=== PATIENT | female | born 1960 ===

== ENCOUNTER 2020-01-30 08:47 | Day surgery (SDC) | payer OTHER ==
[~2020-01-30 08:47] MED LIST: 50% Dextrose in Water 50 ML Syringe IVPUSH PRN; Albuterol 0.083% 2.5 MG/3 ML Neb Soln NEB PRN; Atropine 0.1 MG/ML 10 ML Syringe IVPUSH PRN; EPINEPHrine 1:10,000 1 MG/10 ML Syringe IVPUSH PRN; Lactated Ringers 1,000 ML IV SCH; Lidocaine 2% 5 ML SDV ONE; Midazolam 1 MG/ML 2 ML SDV ONE; Naloxone 0.4 MG/ML Syringe IVPUSH PRN; Propofol 200 MG/20 ML SDV ONE; Sodium Chloride 0.9% 10 ML SDV IV PRN; Sodium Chloride 0.9% 10 ML Syringe FLUSH PRN; Sodium Chloride 0.9% 2.5 ML Syringe FLUSH PRN; fentaNYL 100 MCG/2 ML SDV IVPUSH PRN; fentaNYL 100 MCG/2 ML SDV ONE
[2020-01-30] MEDS ORDERED: Propofol 200 MG/20 ML SDV ONE (09:16)
--- NOTE | 2020-01-30 09:33 | PCM.PREANE ---
Preanesthetic Assessment - Anesthesia/Transfusion/Family Hx Anesthesia History: Prior Anesthesia Without Reaction Family History of Anesthesia Reaction: No Transfusion History: No Prior Transfusion(s) Intubation History: Unknown - Review of Systems General: No Symptoms Pulmonary: No Symptoms Cardiovascular: No Symptoms Gastrointestinal: No Symptoms Neurological: No Symptoms Other: Reports: None - Physical Assessment Vital Signs: Last Vital Signs Temp 36.3 C 01/30/20 09:00 Pulse 66 01/30/20 09:00 Resp 16 01/30/20 09:00 BP 143/81 H 01/30/20 09:00 Pulse Ox 97 01/30/20 09:00 Height: 6 ft Weight: 96.615 kg ASA Class: 1 Mental Status: Alert & Oriented x3 Airway Class: Mallampati = 1 Dentition: Reports: Normal Dentition Thyro-Mental Finger Breadths: 3 Mouth Opening Finger Breadths: 3 ROM/Head Extension: Full Lungs: Clear to Auscultation, Normal Respiratory Effort Cardiovascular: Regular Rate, Regular Rhythm - Allergies Allergies/Adverse Reactions: Allergies Allergy/AdvReac Type Severity Reaction Status Date / Time No Known Allergies Allergy Verified 01/24/20 09:17 - Blood Blood Available: No - Anesthesia Plan Pre-Op Medication Ordered: None - Acknowledgements Anesthesia Type Planned: MAC Pt an Appropriate Candidate for the Planned Anesthesia: Yes Alternatives and Risks of Anesthesia Discussed w Pt/Guardian: Yes Pt/Guardian Understands and Agrees with Anesthesia Plan: Yes PreAnesthesia Questionnaire HEENT History: Other HEENT History: wears reading glasses Cardiovascular History: Reports: None Respiratory History: Reports: None Gastrointestinal History: Reports: None Genitourinary History: Reports: None 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 Musculoskeletal History: Reports: None Neurological History: Reports: Vertigo Other Neuro History: hx of motion sickness Psychiatric History: Reports: None Hematologic History: Reports: None Immunologic History: Reports: None Oncologic (Cancer) History: Reports: None Dermatologic History: Reports: Other (See Below) Other Dermatologic History: has occasional outbreaks of shingles - Past Surgical History HEENT Surgical History: Reports: LASIK, Tonsillectomy Female Surgical History: Reports: D&C, Tubal Ligation, Other (See Below) Other Female Surgeries/Procedures: Laparotomy Other Musculoskeletal Surgeries/Procedures:: bone spur removed from foot - SUBSTANCE USE Smoking Status *Q: Former Smoker (quit > 15 years ago) Tobacco Use Within Last Twelve Months: No Recreational Drug Use History: No - HOME MEDS Home Medications: Home Meds Chromium/Herbal Complex No.238 [Green Tea Caplet] 1 tab PO DAILY 11/06/15 [History] Fish Oil/[place]-3 Fatty Acids [Fish Oil 1,000 MG] 1 cap PO DAILY 11/06/15 [History] Multivitamin [Multiple Vitamins] 1 tab PO DAILY 11/06/15 [History] Lifitegrast [Xiidra] 1 drop EYEBOTH BID 01/24/20 [History] - CURRENT (IN HOUSE) MEDS Current Meds: Current Medications Albuterol (Proventil Neb Soln) 2.5 mg NEB ONETIME PRN PRN Reason: Wheezing Atropine Sulfate (Atropine 0.1 Mg/Ml) 0.5 mg IVPUSH ASDIRECTED PRN PRN Reason: Hypo-perfusion Atropine Sulfate (Atropine 0.1 Mg/Ml) 1 mg IVPUSH ASDIRECTED PRN PRN Reason: Hypo-Perfusion Dextrose/Water (Dextrose 50% In Water) 50 ml IVPUSH ASDIRECTED PRN PRN Reason: Hypoglycemia Epinephrine HCl (Epinephrine 1:10,000) 1 mg IVPUSH ASDIRECTED PRN PRN Reason: ACLS Guidelines Fentanyl (Sublimaze) 50 - 100 mcg IVPUSH Q5M PRN PRN Reason: Pain Lactated Ringer's (Ringers, Lactated) 1,000 mls @ 125 mls/hr IV ASDIRECTED EMILIE Last Admin: 01/30/20 09:25 Dose: 125 mls/hr Documented by: Naloxone HCl (Narcan) 0.1 mg IVPUSH ASDIRECTED PRN PRN Reason: Respiratory Depression Sodium Chloride (Normal Saline) 10 ml IV ASDIRECTED PRN PRN Reason: IV Use Sodium Chloride (Saline Flush) 10 ml FLUSH ASDIRECTED PRN PRN Reason: Keep Vein Open Sodium Chloride (Saline Flush) 2.5 ml FLUSH ASDIRECTED PRN PRN Reason: Keep Vein Open Discontinued Medications Fentanyl (Sublimaze) Confirm Administered Dose 100 mcg .ROUTE .STK-MED ONE Stop: 01/30/20 08:31 Lidocaine (Xylocaine-Mpf 2%) Confirm Administered Dose 5 ml .ROUTE .STK-MED ONE Stop: 01/30/20 08:31 Midazolam HCl (Versed 1 Mg/Ml) Confirm Administered Dose 2 mg .ROUTE .STK-MED ONE Stop: 01/30/20 08:31 Propofol (Diprivan 20 Ml) Confirm Administered Dose 400 mg .ROUTE .STK-MED ONE Stop: 01/30/20 08:31 Propofol (Diprivan 20 Ml) Confirm Administered Dose 200 mg .ROUTE .STK-MED ONE Stop: 01/30/20 09:17
[2020-01-30] MEDS ORDERED: Bupivacaine 0.5% 30 ML SDV ONE (09:48)
[2020-01-30] MEDS ORDERED: Lidocaine 1% 20 ML MDV ONE (09:48)
[2020-01-30] MEDS ORDERED: ePHEDrine 50 MG/ML SDV ONE (10:19)
[2020-01-30] MEDS ORDERED: Sodium Chloride 0.9% 20 ML ONE (10:20)
[2020-01-30] MEDS ORDERED: ceFAZolin 1 GM Vial ONE (10:20)
[2020-01-30] MEDS ORDERED: Glycopyrrolate 0.2 MG/ML SDV ONE ×2 (10:20→10:24)
[2020-01-30] MEDS ORDERED: Ketorolac 30 MG/ML SDV ONE (10:28)
[2020-01-30] MEDS ORDERED: Octyl 2-Cyanoacrylate 1 Tube ONE (10:29)
[2020-01-30] MEDS ORDERED: Ondansetron 4 MG/2 ML SDV ONE (10:30)
--- NOTE | 2020-01-30 10:43 | PCM.OPNOTE ---
- General Post-Op/Procedure Note Date of Surgery/Procedure: 01/30/20 Operative Procedure(s): Excision of right shoulder mass. Findings: 8.25 cm x 5.5 cm x 1.5 cm lipoma of right shoulder. Pre Op Diagnosis: Right shoulder mass. Post-Op Diagnosis: Right shoulder lipoma. Anesthesia Technique: General ET Tube Primary Surgeon: Beth Arceo Fluid Replacement, Intraop: 1,000 EBL in mLs: 3 Complications: None. Condition: Stable
[2020-01-30 11:16] VITALS: BP 122/71; PULSE 64
--- NOTE | 2020-01-30 11:17 | PCM.POSTAN ---
POST ANESTHESIA ASSESSMENT - MENTAL STATUS Mental Status: Alert, Oriented - VITAL SIGNS Vital Signs: Last Vital Signs Temp 36.5 C 01/30/20 11:10 Pulse 64 01/30/20 11:10 Resp 14 01/30/20 11:10 BP 122/71 01/30/20 11:10 Pulse Ox 96 01/30/20 11:10 - RESPIRATORY Respiratory Status: Respiratory Rate WNL, Airway Patent, O2 Saturation Stable - CARDIOVASCULAR CV Status: Pulse Rate WNL, Blood Pressure Stable - GASTROINTESTINAL GI Status: No Symptoms - PAIN Pain Score: 0 - POST OP HYDRATION Hydration Status: Adequate & Stable - OBSERVATIONS Free Text/Narrative:: No anesthesia problems
--- NOTE | 2020-01-30 14:35 | PCM48HPAN ---
Post Anesthesia Note - EVALUATION WITHIN 48HRS OF ANESTHETIC Vital Signs in Normal Range: Yes Patient Participated in Evaluation: Yes Respiratory Function Stable: Yes Airway Patent: Yes Cardiovascular Function Stable: Yes Hydration Status Stable: Yes Pain Control Satisfactory: Yes Nausea and Vomiting Control Satisfactory: Yes Mental Status Recovered: Yes Vital Signs: Last Vital Signs Temp 36.5 C 01/30/20 11:10 Pulse 64 01/30/20 11:10 Resp 14 01/30/20 11:10 BP 122/71 01/30/20 11:10 Pulse Ox 96 01/30/20 11:10 - COMMENTS/OBSERVATIONS Free Text/Narrative:: No anesthesia problems
--- NOTE | 2020-01-31 09:54 | OR ---
SURGEON: BETH ARCEO MD DATE OF PROCEDURE: 01/30/2020 PREOPERATIVE DIAGNOSIS: Right shoulder lipoma. POSTOPERATIVE DIAGNOSIS: Right shoulder lipoma. PROCEDURE PERFORMED: Excision of right shoulder lipoma. PRIMARY SURGEON: Beth Arceo MD TAX ADJUSTER: study assistant: Dr. Govind Pedersen, resident intern. ANESTHESIA: General endotracheal anesthesia. FLUIDS: 1100 mL of crystalloid. ESTIMATED BLOOD LOSS: 3 mL. FINDINGS: 8.25 x 5.5 x 1.5 cm lipoma in the right posterior shoulder area. COMPLICATIONS: None. INDICATIONS: The patient is a 59-year-old female who recently noticed a mass over the posterior right humeral head. She underwent an ultrasound that showed this to be a lipoma. The patient feels like it has been getting bigger over time and would like to have it removed. I explained the procedure, expected perioperative course, and risks. She verbalized understanding and wishes to proceed. PROCEDURE IN DETAIL: The patient was brought into the OR and placed on the OR table in supine position. A time-out was completed verifying the patient's name, age, date of , allergies, and procedure to be performed. General endotracheal anesthesia was induced. The patient was then placed in the left lateral decubitus position, making sure to appropriately cushion and pad all bony prominences and secure the patient safely to the table. The right lateral shoulder was then prepped and draped in usual standard fashion. I anesthetized the skin over the top of the mass with 0.5% Marcaine plain. I then made a 4 cm incision vertically along Langerhans lines over the top of the mass. Electrocautery was used to dissect down to level of subcutaneous fat. Shortly after reaching the subcutaneous fat, I noted a small thin wispy capsule. I opened this and noted a large globular mass consistent with a lipoma. I opened the subcutaneous fat and capsule superiorly and inferiorly. Then, using blunt dissection with my finger, I encircled the mass and freed it from its surrounding tissue. Pressure was then applied on either side of the mass and it was delivered outside of the incision. There were a few wispy attachments to the posterior aspect of the lesion. These were taken down with electrocautery. The mass was placed on the back table and measured. It measured 8.25 x 5.5 x 1.5 cm in size. No margins were associated with the case. The mass was then sent to pathology, labeled as right shoulder lipoma. The operative field was then irrigated with normal saline. Hemostasis was achieved with electrocautery. I then closed the subcutaneous fat layer under the skin with interrupted 3-0 Vicryl sutures. The skin was then closed with a running 4-0 Monocryl stitch. Dermabond and sterile dressings were applied. The patient tolerated the procedure well and was transferred to the PACU in stable condition. All counts were complete and correct at the end of the case. OLEG ARMANDO /[id number]
== END 2020-01-30 11:45 | disposition home or self-care (01) ==
LOC: MW.SDS 08:47
PROVIDERS: ATTEND Surgery
DX: D17.21 Benign lipomatous neoplasm of skin and subcutaneous tissue of right arm (principal); Z79.899 Other long term (current) drug therapy; Z98.890 Other specified postprocedural states; Z87.891 Personal history of nicotine dependence
CPT/HCPCS: 23071; A9270; J0690; J1885; J2001; J2250; J2405; J2704; J3010; J3490; J7120; 00400; 88304

== ENCOUNTER 2020-03-16 07:50 | Day surgery (SDC) | payer OTHER ==
[~2020-03-16 07:50] MED LIST changes: -50% Dextrose in Water 50 ML Syringe IVPUSH PRN; -Albuterol 0.083% 2.5 MG/3 ML Neb Soln NEB PRN; -Atropine 0.1 MG/ML 10 ML Syringe IVPUSH PRN; +Bupivacaine 0.25% 10 ML SDV ONE; +Dexamethasone 4 MG/ML 5 ML MDV ONE; -EPINEPHrine 1:10,000 1 MG/10 ML Syringe IVPUSH PRN; +Fluorescein 5 ML Vial ONE; +Glycopyrrolate 0.2 MG/ML SDV ONE; -Lactated Ringers 1,000 ML IV SCH; -Lidocaine 2% 5 ML SDV ONE; +Methylene Blue 50 MG/10 ML Ampule ONE; -Naloxone 0.4 MG/ML Syringe IVPUSH PRN; +Ondansetron 4 MG/2 ML SDV ONE; +Rocuronium Bromide 50 MG/5 ML Syringe ONE; -Sodium Chloride 0.9% 10 ML SDV IV PRN; -Sodium Chloride 0.9% 10 ML Syringe FLUSH PRN; -Sodium Chloride 0.9% 2.5 ML Syringe FLUSH PRN; +ceFAZolin 2 GM in Premix Bag 1 BAG IV ONE; +ceFAZolin/Dextrose,Iso-Osmotic 2 GM/50 ML Duplex Bag IV ONE; -fentaNYL 100 MCG/2 ML SDV IVPUSH PRN; -fentaNYL 100 MCG/2 ML SDV ONE; +fentaNYL 250 MCG/5 ML SDV ONE
[2020-03-16] MEDS: Lactated Ringers 1,000 ML IV SCH ×2 (08:10→21:02)
--- NOTE | 2020-03-16 08:38 | PCM.PREANE ---
Preanesthetic Assessment - Anesthesia/Transfusion/Family Hx Anesthesia History: Prior Anesthesia Without Reaction Family History of Anesthesia Reaction: No Transfusion History: No Prior Transfusion(s) Intubation History: Unknown - Review of Systems General: No Symptoms Pulmonary: No Symptoms Cardiovascular: No Symptoms Gastrointestinal: No Symptoms Neurological: No Symptoms Other: Reports: None - Physical Assessment NPO Status Date: 03/15/20 Vital Signs: Last Vital Signs Temp 96.8 F L 03/16/20 07:55 Pulse 96 03/16/20 07:55 Resp 16 03/16/20 07:55 BP 129/80 03/16/20 07:55 Pulse Ox 94 L 03/16/20 07:55 Height: 6 ft Weight: 92.533 kg ASA Class: 2 Mental Status: Alert & Oriented x3 Airway Class: Mallampati = 2 Dentition: Reports: Normal Dentition ROM/Head Extension: Full Lungs: Clear to Auscultation, Normal Respiratory Effort Cardiovascular: Regular Rate, Regular Rhythm - Allergies Allergies/Adverse Reactions: Allergies Allergy/AdvReac Type Severity Reaction Status Date / Time No Known Allergies Allergy Verified 03/10/20 11:27 - Blood Blood Available: No - Anesthesia Plan Pre-Op Medication Ordered: None - Acknowledgements Anesthesia Type Planned: General Anesthesia Pt an Appropriate Candidate for the Planned Anesthesia: Yes Alternatives and Risks of Anesthesia Discussed w Pt/Guardian: Yes Pt/Guardian Understands and Agrees with Anesthesia Plan: Yes PreAnesthesia Questionnaire HEENT History: Reports: Other (See Below) Other HEENT History: permanent upper dental bridge Cardiovascular History: Reports: None Respiratory History: Reports: None Gastrointestinal History: Reports: None Genitourinary History: Reports: None 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: 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: Endometriosis, Fibroids, Musculoskeletal History: Reports: None Neurological History: Reports: Other (See Below) Other Neuro History: hx of motion sickness Psychiatric History: Reports: None Endocrine/Metabolic History: Reports: None Hematologic History: Reports: None Immunologic History: Reports: None Oncologic (Cancer) History: Reports: None Dermatologic History: Reports: None - Past Surgical History Head Surgeries/Procedures: Reports: None HEENT Surgical History: Reports: Detached Retina, LASIK, Tonsillectomy Other HEENT Surgeries/Procedures: surgery for detached retina Cardiovascular Surgical History: Reports: None Respiratory Surgical History: Reports: None GI Surgical History: Reports: None Female Surgical History: Reports: D&C, Tubal Ligation Endocrine Surgical History: Reports: None Neurological Surgical History: Reports: None Musculoskeletal Surgical History: Reports: Other (See Below) Other Musculoskeletal Surgeries/Procedures:: rt bunionectomy Oncologic Surgical History: Reports: None Dermatological Surgical History: Reports: Other (See Below) - SUBSTANCE USE Tobacco Use Status *Q: Never Tobacco User Recreational Drug Use History: No - HOME MEDS Home Medications: Home Meds Fish Oil/[place]-3 Fatty Acids [Fish Oil 1,000 MG] 1 cap PO DAILY 11/06/15 [History] Multivitamin [Multiple Vitamins] 1 tab PO DAILY 11/06/15 [History] Lifitegrast [Xiidra] 1 drop EYEBOTH BID 01/24/20 [History] [place]/D3/Mag11/Zinc/Halal Meat Packer/Yvan/Bor [Caltrate 600+D Plus Tablet] 1 tab PO DAILY 03/10/20 [History] Carboxymethylcellulose Sodium [Thera Tears] 1 drop EYEBOTH ASDIRECTED PRN 03/10/20 [History] - CURRENT (IN HOUSE) MEDS Current Meds: Current Medications Lactated Ringer's (Ringers, Lactated) 1,000 mls @ 125 mls/hr IV ASDIRECTED EMILIE Last Admin: 03/16/20 08:10 Dose: 125 mls/hr Documented by: Discontinued Medications Bupivacaine HCl (Sensorcaine-Mpf 0.25%) Confirm Administered Dose 20 ml .ROUTE .STK-MED ONE Stop: 03/16/20 07:48 Cefazolin Sodium/Dextrose (Ancef) Confirm Administered Dose 2 gm IV .STK-MED ONE Stop: 03/16/20 07:38 Dexamethasone (Dexamethasone) Confirm Administered Dose 20 mg .ROUTE .STK-MED ONE Stop: 03/16/20 07:32 Fentanyl (Sublimaze) Confirm Administered Dose 250 mcg .ROUTE .STK-MED ONE Stop: 03/16/20 07:31 Fluorescein Sodium (Ak-Fluor) Confirm Administered Dose 5 ml .ROUTE .STK-MED ONE Stop: 03/16/20 07:47 Glycopyrrolate (Robinul) Confirm Administered Dose 0.4 mg .ROUTE .STK-MED ONE Stop: 03/16/20 07:33 Cefazolin Sodium/Dextrose 2 gm (/ Premix) 50 mls @ 100 mls/hr IV ONETIME ONE Stop: 03/16/20 06:43 Methylene Blue (Provayblue) Confirm Administered Dose 50 mg .ROUTE .STK-MED ONE Stop: 03/16/20 07:48 Midazolam HCl (Versed 1 Mg/Ml) Confirm Administered Dose 2 mg .ROUTE .STK-MED ONE Stop: 03/16/20 07:31 Ondansetron HCl (Zofran) Confirm Administered Dose 4 mg .ROUTE .STK-MED ONE Stop: 03/16/20 07:32 Propofol (Diprivan 20 Ml) Confirm Administered Dose 200 mg .ROUTE .STK-MED ONE Stop: 03/16/20 07:30 Rocuronium Beaman (Rocuronium Beaman) Confirm Administered Dose 50 mg .ROUTE .STK-MED ONE Stop: 03/16/20 07:33
[2020-03-16 09:01] LABS: BLOOD UREA NITROGEN,BUN 12 mg/dL (7.0-18.0); CARBON DIOXIDE,CO2 24.5 mmol/L (21.0-32.0); CHLORIDE,CL 107 mmol/L (98-107); GLUCOSE RANDOM 99 mg/dL (74-106); POTASSIUM,K 4.1 mmol/L (3.5-5.1); SODIUM,NA 142 mmol/L (136-145)
[2020-03-16] MEDS ORDERED: ePHEDrine 50 MG/ML SDV ONE (09:34)
[2020-03-16] MEDS ORDERED: Glycopyrrolate 0.2 MG/ML SDV ONE (09:47)
[2020-03-16] MEDS ORDERED: fentaNYL 100 MCG/2 ML SDV IVPUSH PRN (10:36)
[2020-03-16] MEDS ORDERED: Ketorolac 30 MG/ML SDV IVPUSH ONE (11:18)
[2020-03-16] MEDS ORDERED: Ketorolac 30 MG/ML SDV IVPUSH PRN (11:18)
[2020-03-16] MEDS ORDERED: Promethazine 25 MG/ML SDV IM PRN (11:18)
[2020-03-16] MEDS ORDERED: Acetaminophen/oxyCODONE 325-5 MG Tab PO PRN (11:18)
[2020-03-16] MEDS ORDERED: oxyCODONE 5 MG Tab PO PRN (11:18)
[2020-03-16] MEDS ORDERED: Morphine 4 MG/ML Syringe IVPUSH PRN (11:18)
[2020-03-16] MEDS ORDERED: Ondansetron 4 MG/2 ML SDV IVPUSH PRN (11:18)
[2020-03-16] MEDS ORDERED: Dextrose 5%-0.9% NaCl 1,000 ML IV SCH (11:30)
--- NOTE | 2020-03-16 11:30 | PCM.OPNOTE ---
- General Post-Op/Procedure Note Date of Surgery/Procedure: 03/16/20 Operative Procedure(s): LAVH/BSO Findings: 6 week sized anteverted uterus Normal tube and ovaries Omental adhesion to the posterior uterus and adnexa in the left pelvis Right ovary with paraovarian cyst Pre Op Diagnosis: Persistent Postmenopausal bleeding Post-Op Diagnosis: Same Anesthesia Technique: General ET Tube Primary Surgeon: Monique Bae Secondary Surgeon: Carolyn Arnold Anesthesia Provider: Remington Sibley Pathology: Uterus tube and ovary Fluid Replacement, Intraop: 1,500 Output, Urine Amount: 50 EBL in mLs: 100 Complications: None Condition: Good
--- NOTE | 2020-03-16 13:38 | PCM.POSTAN ---
POST ANESTHESIA ASSESSMENT - MENTAL STATUS Mental Status: Alert, Oriented - VITAL SIGNS Vital Signs: Last Vital Signs Temp 97.3 F 03/16/20 12:25 Pulse 83 03/16/20 12:25 Resp 12 03/16/20 12:25 BP 113/67 03/16/20 12:25 Pulse Ox 99 03/16/20 12:25 - RESPIRATORY Respiratory Status: Respiratory Rate WNL, Airway Patent, O2 Saturation Stable - CARDIOVASCULAR CV Status: Blood Pressure Stable - GASTROINTESTINAL GI Status: No Symptoms - POST OP HYDRATION Hydration Status: Adequate & Stable
[2020-03-16] MEDS: Acetaminophen/oxyCODONE 325-5 MG Tab PO PRN (14:00)
[2020-03-16] MEDS ORDERED: Lactated Ringers 1,000 ML IV ONE (18:30)
[2020-03-16] MEDS: Acetaminophen 650 MG Supp RECTAL SCH ×2 (18:32→22:56)
[2020-03-16] MEDS: Metoclopramide 10 MG/2 ML SDV IVPUSH SCH ×2 (19:44→22:56)
--- NOTE | 2020-03-16 21:16 | OR ---
SURGEON: NYDIA BRENNER DATE OF PROCEDURE: 03/16/2020 PREOPERATIVE DIAGNOSIS: A 59-year-old para 2 with recurrent postmenopausal bleeding. POSTOPERATIVE DIAGNOSIS: A 59-year-old para 2 with recurrent postmenopausal bleeding. PROCEDURES: 1. Laparoscopic-assisted vaginal hysterectomy. 2. Bilateral salpingo-oophorectomy. 3. Cystoscopy. ANESTHESIA: General. ESTIMATED BLOOD LOSS: 100. IV FLUID: 1500. URINE OUTPUT: 50. COMPLICATION: None FINDING: A 6-week sized anteverted uterus. Laparoscopy showed a menopausal uterus with some omental adhesion in the left sidewall from the colon to the back of the uterus. Normal tubes and ovaries. The ovary on the right side appeared to have a para ovarian cyst. BRIEF HISTORY: She is 59, para 2, with recurrent postmenopausal bleeding. She had a previous hysteroscopy, D and C done in 2016 and also had an EMB done this year. The patient had an ultrasound that showed EMS of 2.75 and had some fluid in the endometrial canal. Ultrasound showed uterus 7 x 3 x 5 cm. The patient was fed up of recurrent sampling of her uterus and she desired definitive management with the removal of tubes and ovaries. She was explained the risk, benefits, and alternatives, and she decided to proceed. PROCEDURE IN DETAIL: The patient was taken to the operating room, where she was placed in the dorsal lithotomy position with an Ilya stirrups. She was prepared and draped in the normal sterile fashion. A Hansen catheter was placed. A speculum was placed to expose the cervix after being prepped. The anterior lip of the cervix was grasped with the tenaculum. The cervix was dilated to accommodate the uterine manipulator, which was introduced. Attention was placed to the abdomen. 0.25% Marcaine was infiltrated into the subumbilical fold. A 5 mm incision was made. The abdomen was entered via direct entry with the fiberoptic trocar. Pneumoperitoneum was obtained to 15 mmHg. Then, a right and left lower quadrant incision was made 2 fingerbreadths above and superior to the anterior superior iliac spine. Then, the 5 mm trocar with a balloon was placed under direct entry via direct visualization. The patient was placed in Trendelenburg position. The uterus was elevated with the aid of the uterine manipulator. The bilateral ureters were identified. The bowel was retracted out of the operative field with the aid of the LigaSure device. The infundibulopelvic ligament was sequentially cut and coagulated all the way to the cornua, and the right round ligament was also transected. Then, the bladder flap was created on the right and on the left side. Then, the uterine artery was skeletonized and was coagulated and cut. The same was done on the right and on the left. The bladder flap was completed on the opposite side also. Then, attention was placed to the vaginal region, where the cervix was exposed with the aid of the weighted speculum and a right-angle retractor. The cervicovaginal junction was circumferentially cut with the Bovie. The posterior cul-de-sac was entered sharply with the Hickey scissors. A long weighted-speculum was placed into the posterior cul-de-sac. The anterior colpotomy was made with careful dissection of the vesicouterine plane to reach the peritoneum. The right-angle retractor was then placed into the vesicouterine space. On the right, with a Nataliia clamp, the uterosacral ligament was clamped and cut, and suture ligated with 0 Vicryl. Subsequently, the cardinal ligament was also clamped and cut, and suture ligated with 0 Vicryl. These steps were repeated on the left side. With this, the uterus was detached from supporting ligament and removed from the vagina. The pedicles were inspected and noted to be hemostatic. Then, the posterior vaginal wall was suspended to the uterosacral. The vaginal colpotomy was sutured with 0 Polysorb. Cystoscopy was done. Bilateral ureteral jet was noted. The bladder was noted to be intact. Attention was placed to the abdomen. The incision was inspected and noted to be hemostatic. All instrument and pad were correct x2. The pneumoperitoneum in the abdomen was 3 to 5 mmHg. Hemostasis was still noted, and trocars were removed under direct visualization. Laparoscopic incision was approximated with 3-0 Monocryl. The patient tolerated the procedure well and was taken to the recovery room in stable condition. ANAYELI ARMANDO /[id number]
[2020-03-17] MEDS ORDERED: Acetaminophen 650 MG Supp RECTAL SCH
[2020-03-17] MEDS ORDERED: Metoclopramide 10 MG/2 ML SDV IVPUSH SCH (04:00)
[2020-03-17] MEDS: Acetaminophen/oxyCODONE 325-5 MG Tab PO PRN ×2 (04:48→11:18)
[2020-03-17 06:24] LABS: BLOOD UREA NITROGEN,BUN 10 mg/dL (7.0-18.0); CARBON DIOXIDE,CO2 28.8 mmol/L (21.0-32.0); CHLORIDE,CL 107 mmol/L (98-107); GLUCOSE RANDOM 92 mg/dL (74-106); POTASSIUM,K 4.3 mmol/L (3.5-5.1); SODIUM,NA 142 mmol/L (136-145)
[2020-03-17 12:04] VITALS: BP 125/69; PULSE 69
--- NOTE | 2020-03-17 12:22 | PCM.SURGPN ---
- General Info Date of Service: 03/17/20 Date of Surgery/Procedure: 03/16/20 POD#: 1 Post-Op Diagnosis: Recurrent postmenopausal bleeding Functional Status: Reports: Pain Controlled, Tolerating Diet, Ambulating - Review of Systems General: Reports: No Symptoms HEENT: Reports: No Symptoms Pulmonary: Reports: No Symptoms Cardiovascular: Reports: No Symptoms Gastrointestinal: Reports: No Symptoms Genitourinary: Reports: No Symptoms Musculoskeletal: Reports: No Symptoms Skin: Reports: No Symptoms Neurological: Reports: No Symptoms Psychiatric: Reports: No Symptoms - Patient Data Vitals - Most Recent: Last Vital Signs Temp 35.6 C L 03/17/20 12:00 Pulse 69 03/17/20 12:00 Resp 22 H 03/17/20 12:00 BP 125/69 03/17/20 12:00 Pulse Ox 95 03/17/20 12:00 Weight - Most Recent: 92.533 kg I&O - Last 24 Hours: Intake & Output 03/16/20 03/17/20 03/17/20 22:59 06:59 14:59 Output Total 120 Balance -120 Lab Results Last 24 Hrs: Laboratory Results - last 24 hr 03/17/20 03/17/20 Range/Units 05:30 05:30 WBC 9.58 (4.0-11.0) K/uL RBC 4.28 L (4.30-5.90) M/uL Hgb 11.9 L (12.0-16.0) g/dL Hct 37.2 (36.0-46.0) % MCV 86.9 (80.0-98.0) fL MCH 27.8 (27.0-32.0) pg MCHC 32.0 (31.0-37.0) g/dL RDW Std Deviation 45.8 (28.0-62.0) fl RDW Coeff of Fahad 15 (11.0-15.0) % Plt Count 269 (150-400) K/uL MPV 9.70 (7.40-12.00) fL Neut % (Auto) 63.8 (48.0-80.0) % Lymph % (Auto) 28.4 (16.0-40.0) % Greene % (Auto) 7.6 (0.0-15.0) % Eos % (Auto) 0.1 (0.0-7.0) % Baso % (Auto) 0.1 (0.0-1.5) % Neut # (Auto) 6.1 H (1.4-5.7) K/uL Lymph # (Auto) 2.7 H (0.6-2.4) K/uL Greene # (Auto) 0.7 (0.0-0.8) K/uL Eos # (Auto) 0.0 (0.0-0.7) K/uL Baso # (Auto) 0.0 (0.0-0.1) K/uL Nucleated RBC % 0.0 /100WBC Nucleated RBCs # 0 K/uL Sodium 142 (136-145) mmol/L Potassium 4.3 (3.5-5.1) mmol/L Chloride 107 (98-107) mmol/L Carbon Dioxide 28.8 (21.0-32.0) mmol/L BUN 10 (7.0-18.0) mg/dL Creatinine 0.9 (0.6-1.0) mg/dL Est Cr Clr Drug Dosing 77.67 mL/min Estimated GFR (MDRD) > 60.0 ml/min Glucose 92 (74-106) mg/dL Calcium 8.5 (8.5-10.1) mg/dL Med Orders - Current: Current Medications Lactated Ringer's (Ringers, Lactated) 1,000 mls @ 125 mls/hr IV ASDIRECTED [facility] Last Admin: 03/16/20 21:02 Dose: 125 mls/hr Documented by: Ketorolac Tromethamine (Toradol) 30 mg IVPUSH Q6H PRN PRN Reason: Pain (severe 7-10) Stop: 03/21/20 11:18 Morphine Sulfate (Morphine) 4 mg IVPUSH Q2H PRN PRN Reason: Pain (severe 7-10) Ondansetron HCl (Zofran) 4 mg IVPUSH Q6H PRN PRN Reason: Nausea/Vomiting Oxycodone HCl (Oxycodone) 5 mg PO Q4H PRN PRN Reason: Pain (moderate 4-6) Oxycodone/Acetaminophen (Percocet 325-5 Mg) 1 tab PO Q4H PRN PRN Reason: Pain (moderate 4-6) Last Admin: 03/17/20 11:18 Dose: 1 tab Documented by: Oxycodone/Acetaminophen (Percocet 325-5 Mg) 2 tab PO Q4H PRN PRN Reason: Pain (moderate 4-6) Promethazine HCl (Phenergan) 25 mg IM Q6H PRN PRN Reason: Nausea/Vomiting Discontinued Medications Acetaminophen (Tylenol) 650 mg RECTAL Q6H [facility] Stop: 03/16/20 18:01 Last Admin: 03/16/20 22:56 Dose: Not Given Documented by: Acetaminophen (Tylenol) 650 mg RECTAL Q6H [facility] Stop: 03/17/20 03:00 Last Admin: 03/17/20 00:22 Dose: 650 mg Documented by: Bupivacaine HCl (Sensorcaine-Mpf 0.25%) Confirm Administered Dose 10 ml .ROUTE .STK-MED ONE Stop: 03/16/20 07:48 Cefazolin Sodium/Dextrose (Ancef) Confirm Administered Dose 2 gm IV .STK-MED ONE Stop: 03/16/20 07:38 Dexamethasone (Dexamethasone) Confirm Administered Dose 20 mg .ROUTE .STK-MED ONE Stop: 03/16/20 07:32 Ephedrine Sulfate (Ephedrine Sulfate) Confirm Administered Dose 50 mg .ROUTE .STK-MED ONE Stop: 03/16/20 09:35 Fentanyl (Sublimaze) Confirm Administered Dose 250 mcg .ROUTE .STK-MED ONE Stop: 03/16/20 07:31 Fentanyl (Sublimaze) 50 mcg IVPUSH Q5M PRN PRN Reason: Pain (severe 7-10) Stop: 03/16/20 13:00 Fluorescein Sodium (Ak-Fluor) Confirm Administered Dose 5 ml .ROUTE .STK-MED ONE Stop: 03/16/20 07:47 Glycopyrrolate (Robinul) Confirm Administered Dose 0.4 mg .ROUTE .STK-MED ONE Stop: 03/16/20 07:33 Glycopyrrolate (Robinul) Confirm Administered Dose 0.2 mg .ROUTE .STK-MED ONE Stop: 03/16/20 09:48 Cefazolin Sodium/Dextrose 2 gm (/ Premix) 50 mls @ 100 mls/hr IV ONETIME ONE Stop: 03/16/20 06:43 Last Admin: 03/16/20 12:23 Dose: 100 mls/hr Documented by: Dextrose/Sodium Chloride (Dextrose 5%-Normal Saline) 1,000 mls @ 125 mls/hr IV ASDIRECTED [facility] Lactated Ringer's (Ringers, Lactated) 1,000 mls @ 166 mls/hr IV BOLUS ONE Stop: 03/17/20 00:31 Last Admin: 03/16/20 18:34 Dose: 999 mls/hr Documented by: Ketorolac Tromethamine (Toradol) 30 mg IVPUSH ONETIME ONE Stop: 03/16/20 11:19 Last Admin: 03/16/20 11:36 Dose: 30 mg Documented by: Methylene Blue (Provayblue) Confirm Administered Dose 0 mg .ROUTE .STK-MED ONE Stop: 03/16/20 07:48 Metoclopramide HCl (Reglan) 10 mg IVPUSH Q8H [facility] Stop: 03/16/20 19:31 Last Admin: 03/16/20 22:56 Dose: Not Given Documented by: Metoclopramide HCl (Reglan) 10 mg IVPUSH Q8H [facility] Stop: 03/17/20 12:01 Last Admin: 03/17/20 04:46 Dose: 10 mg Documented by: Midazolam HCl (Versed 1 Mg/Ml) Confirm Administered Dose 2 mg .ROUTE .STK-MED ONE Stop: 03/16/20 07:31 Ondansetron HCl (Zofran) Confirm Administered Dose 4 mg .ROUTE .STK-MED ONE Stop: 03/16/20 07:32 Propofol (Diprivan 20 Ml) Confirm Administered Dose 200 mg .ROUTE .STK-MED ONE Stop: 03/16/20 07:30 Rocuronium [place] (Rocuronium [place]) Confirm Administered Dose 50 mg .ROUTE .STK-MED ONE Stop: 03/16/20 07:33 - Exam Wound/Incisions: Other (Umbilical tagaderm stained with blood removed , otherwise RLQ and LLQ C/D/I) General: Alert HEENT: Pupils Equal Neck: Supple Lungs: Clear to Auscultation Cardiovascular: Regular Rate, Regular Rhythm GI/Abdominal Exam: Normal Bowel Sounds Neurological: No New Focal Deficit Psy/Mental Status: Alert Sepsis Event Note - Focused Exam Vital Signs: Vital Signs Temp Pulse Resp BP Pulse Ox 03/17/20 12:00 35.6 C L 69 22 H 125/69 95 03/17/20 08:00 36.6 C 70 16 110/56 L 96 03/17/20 04:00 36.8 C 74 19 118/72 94 L - Problem List & Annotations (1) Post-menopausal bleeding SNOMED Code(s): 53216958 Code(s): N95.0 - POSTMENOPAUSAL BLEEDING Status: Acute Current Visit: Yes (2) S/P hysterectomy with oophorectomy SNOMED Code(s): 269598493 Code(s): Z90.710 - ACQUIRED ABSENCE OF BOTH CERVIX AND UTERUS; Z90.721 - ACQU IRED ABSENCE OF OVARIES, UNILATERAL Status: Acute Current Visit: Yes - Problem List Review Problem List Initiated/Reviewed/Updated: Yes - My Orders Last 24 Hours: Active Orders 24 hr Category Date Time Status Patient Status [ADT] Routine ADT 03/16/20 11:18 Active Antiembolic Devices [RC] PER UNIT ROUTINE Care 03/16/20 11:19 Active Notify Provider Intake and Out [RC] ASDIRECTED Care 03/16/20 11:18 Active Notify Provider Vital Signs [RC] ASDIRECTED Care 03/16/20 11:18 Active Oxygen Therapy [RC] ASDIRECTED Care 03/16/20 11:18 Active RT Incentive Spirometry [RC] Q2HWA Care 03/16/20 11:18 Active Ready for Discharge [RC] PER UNIT ROUTINE Care 03/17/20 12:15 Ordered Telemetry Monitoring [Cardiac Monitoring] [RC] Q8H Care 03/16/20 12:30 Active Up With Assistance [RC] PER UNIT ROUTINE Care 03/16/20 11:18 Active Up ad Christy [RC] PER UNIT ROUTINE Care 03/16/20 11:18 Active Vital Signs [RC] Q4H Care 03/16/20 11:18 Active Regular Diet [DIET] Diet 03/16/20 Dinner Active Acetaminophen/oxyCODONE [Percocet 325-5 MG] Med 03/16/20 11:18 Active 1 tab PO Q4H PRN Acetaminophen/oxyCODONE [Percocet 325-5 MG] Med 03/16/20 11:18 Active 2 tab PO Q4H PRN Ketorolac [Toradol] Med 03/16/20 11:18 Active 30 mg IVPUSH Q6H PRN Morphine Med 03/16/20 11:18 Active 4 mg IVPUSH Q2H PRN Ondansetron [Zofran] Med 03/16/20 11:18 Active 4 mg IVPUSH Q6H PRN Promethazine [Phenergan] Med 03/16/20 11:18 Active 25 mg IM Q6H PRN oxyCODONE Med 03/16/20 11:18 Active 5 mg PO Q4H PRN Peripheral IV Discontinue [OM.PC] Routine Oth 03/16/20 11:18 Ordered Sequential Compression Device [OM.PC] Per Unit Routine Oth 03/16/20 11:18 Ordered Resuscitation Status Routine Resus Stat 03/16/20 11:18 Ordered Medication Orders Lactated Ringer's (Ringers, Lactated) 1,000 mls @ 125 mls/hr IV ASDIRECTED [facility] Last Admin: 03/16/20 21:02 Dose: 125 mls/hr Documented by: Infusion: 03/16/20 16:10 Dose: 125 mls/hr Documented by: Admin: 03/16/20 08:10 Dose: 125 mls/hr Documented by: DESTINEY Ketorolac Tromethamine (Toradol) 30 mg IVPUSH Q6H PRN PRN Reason: Pain (severe 7-10) Stop: 03/21/20 11:18 Morphine Sulfate (Morphine) 4 mg IVPUSH Q2H PRN PRN Reason: Pain (severe 7-10) Ondansetron HCl (Zofran) 4 mg IVPUSH Q6H PRN PRN Reason: Nausea/Vomiting Oxycodone HCl (Oxycodone) 5 mg PO Q4H PRN PRN Reason: Pain (moderate 4-6) Oxycodone/Acetaminophen (Percocet 325-5 Mg) 1 tab PO Q4H PRN PRN Reason: Pain (moderate 4-6) Last Admin: 03/17/20 11:18 Dose: 1 tab Documented by: Admin: 03/17/20 04:48 Dose: 1 tab Documented by: Admin: 03/16/20 14:00 Dose: 1 tab Documented by: LEILANI Oxycodone/Acetaminophen (Percocet 325-5 Mg) 2 tab PO Q4H PRN PRN Reason: Pain (moderate 4-6) Promethazine HCl (Phenergan) 25 mg IM Q6H PRN PRN Reason: Nausea/Vomiting - Assessment Assessment (Free Text/Narrative):: 59yo s/p LAVH, BSO for recurrent PMB , POD1 immediate postop complicated with one episode of bradycardia Also had Low urine output post op of 20cc/hr , Bolus IV given , latest output about 40 - 60 hr Hansen out , yet to void H/H stable this AM , Creatinine normal - Plan Plan (Free Text/Narrative):: Continue postop care Follow urinary void if voids will d/c home Pain control as needed Lovenox X 1 dose Incentive spirometry
[2020-03-17] MEDS ORDERED: Enoxaparin 40 MG/0.4 ML Syringe SUBCUT ONE (12:24)
== END 2020-03-17 14:15 | disposition home or self-care (01) ==
LOC: MW.SDS 07:50 → MW.MS 11:18 → MW.SDS 03-17 14:15
PROVIDERS: ATTEND Obstetrics & Gynecology
DX: N85.8 Other specified noninflammatory disorders of uterus (principal); D27.1 Benign neoplasm of left ovary; N95.8 Other specified menopausal and perimenopausal disorders; N73.6 Female pelvic peritoneal adhesions (postinfective); Z79.899 Other long term (current) drug therapy; Z98.890 Other specified postprocedural states
CPT/HCPCS: 36415; 58552; 80048; 84703; 85025; 85027; 86850; 86900; 86901; 88309; A9270; J0690; J1100; J1650; J1885; J2250; J2704; J2765; J3010; J3490; J7120; 00944; J2405